=== PATIENT | female | born 2005 | race Two or more races ===

== ENCOUNTER 2024-10-23 22:27 | Emergency (ER) | payer MEDICAID, SELFPAY ==
[2024-10-23 22:28] VITALS: BMI 41.9
[2024-10-23 22:57] VITALS: BP 145/95; PULSE 105; RESP 20; TEMP 36.8; O2SAT 97
[2024-10-23] MEDS: NAPROXEN 250 MG TABLET 500 MG PO (23:12)
[2024-10-23] MEDS: METOCLOPRAMIDE 5 MG TABLET 10 MG PO (23:13)
[2024-10-24 00:12] VITALS: RESP 18
--- NOTE | 2024-10-24 04:50 | PD.EDHA ---
ED Headache RME/HPI General Chief Complaint: Headache Stated Complaint: HEADACHE Time Seen by Provider: 10/23/24 23:02 Arrival date/time: 10/23/24 22:27 18F with no significant PMH presents to ED with several months of intermittent HAs. When she gets these HAs she states her scalp rapp. Patient also states she's been losing her hair from the sides upwards (patient has photos; she cannot show due to wearing a hijab). Limitations: no limitations Related Data Previous Rx's ?Medication ?Instructions ?Recorded acetaminophen 300 mg-codeine 30 mg 1 tab PO Q8H PRN pain #14 tabs 09/19/22 tablet acetaminophen 500 mg tablet 500 mg PO Q6H PRN fever or pain 09/19/22 #30 tabs ibuprofen 800 mg tablet 800 mg PO Q8H PRN pain #30 tabs 09/19/22 Allergies Allergy/AdvReac Type Severity Reaction Status Date / Time No Known Allergies Allergy Verified 10/23/24 22:28 Review of Systems Review of Systems Systems Reviewed: All systems reviewed, normal except as documented Constitutional Constitutional: Reports system reviewed and no additional complaints, except as documented, Reports as per HPI, Denies fever(s) and Reports headache(s) ENT Ears, Nose, Mouth, and Throat: Denies disequilibrium and Reports headache(s) Cardiovascular Cardiovascular: Reports system reviewed and no additional complaints, except as documented, Denies chest pain and Denies dyspnea Respiratory Respiratory: Reports system reviewed and no additional complaints, except as documented, Denies cough and Denies dyspnea Gastrointestinal Gastrointestinal: Reports system reviewed and no additional complaints, except as documented, Denies abdominal pain, Denies nausea and Denies vomiting Integumentary/Breasts Skin/Breast: Reports as per HPI and Reports alopecia Neurologic Neurologic: Reports system reviewed and no additional complaints, except as documented, Denies confusion, Denies disequilibrium and Reports headache(s) Psychiatric Psychiatric: Denies confusion Past Medical History Past Medical History NEUROLOGIC: Negative Neurological Disorders or Seizures CARDIAC: Negative Cardiac Disorders or Congestive Heart Failure RESPIRATORY: Negative Chronic Obstructive Pulmonary Disease (COPD) GASTROINTESTINAL: Negative Gastrointestinal Disorders GENITOURINARY: Negative Genitourinary Disorders or Renal Disease REPRODUCTIVE: Negative Pelvic Inflammatory Disease MUSCULOSKELETAL: Negative Musculoskeletal Disorders ENT: Negative Cataracts ENDOCRINE: Negative Endocrine Disorders, Diabetes Mellitus Type 1 or Diabetes Mellitus Type 2 HEMATOLOGIC: Negative Blood Disorders OTHER HISTORY: Negative Autoimmune Disease, Blood Transfusions, Anesthesia Reactions, MRSA, Clostridium Difficile or Cancer Family History FAMILY HISTORY: Negative Family Psychiatric Problems, Family Respiratory Disorders, Family Cardiac Disorders, Family Gastrointestinal Problems, Family Cancer, Family Surgery or Family Anesthesia Reaction Surgical History SURGICAL: Positive Tonsillectomy; Negative Cardiac Surgery, Endocrine Surgery, Abdominal Surgery, Nephrectomy, Joint Replacement or Mastectomy Social History SMOKING STATUS: Never smoker ED Exam General Limitations: Present no limitations General appearance: Present alert and in no apparent distress Head Head exam: Present atraumatic and other (wearing hijab) Eye Eye exam: Present normal appearance, PERRL and EOMI ENT ENT exam: Present normal exam, normal oropharynx and mucous membranes moist Neck Neck exam: Present normal inspection, full ROM and trachea midline Chest Chest inspection: Present normal inspection and symmetric chest wall rise Respiratory Respiratory exam: Present normal lung sounds bilaterally Cardiovascular Cardiovascular exam: Present regular rate, normal rhythm and normal heart sounds Abdominal Exam Abdominal exam: Present soft and normal bowel sounds Extremities Exam Extremities exam: Present normal inspection and full ROM Back Exam Back exam: Present normal inspection and full ROM Neurological Exam Neurological exam: Present alert, oriented X3 and CN II-XII intact Psychiatric Psychiatric exam: Present normal affect and normal mood Skin Skin exam: Present warm, dry, intact and normal color Course Quality Measures none Orders Category Date Time Status Metoclopramide [Reglan] Med 10/23/24 23:03 Discontinued 10 mg PO X1 ONE Naproxen [Naprosyn] Med 10/23/24 23:03 Discontinued 500 mg PO X1 ONE Vital Signs Vital signs: Vital Signs Temperature 98.2 F 10/23/24 22:57 Pulse Rate 105 H 10/23/24 22:57 Respiratory Rate 20 10/23/24 22:57 Blood Pressure 145/95 H 10/23/24 22:57 Pulse Oximetry (%) 97 10/23/24 22:57 Oxygen Delivery Method Room Air 10/23/24 22:57 O2 at 97% on RA and WNLs Headache MDM Narrative MDM Narrative:: 18F with no significant PMH presents to ED with several months of intermittent HAs. When she gets these HAs she states her scalp rapp. Patient also states she's been losing her hair from the sides upwards (patient has photos; she cannot show due to wearing a hijab). Physical exam reveals normal pupil response and EOM. No sinus tenderness. Patient is afebrile, calm, and alert. Meds improved current TURK. Personnel Worker given to see esthetician/skin therapist to work-up alopecia. Patient data External records reviewed:: [facility] previous records Clinical information provided by:: patient Social determinants that could affect healthcare access:: none Patient has the following chronic illnesses:: none How is presenting disease/condition affected by chronic disease/condition?: no chronic disease Evaluation data The following diagnostics were reviewed and interpreted by me:: other (specify) (none) Lab and/or radiology exams considered but not ordered:: not ordered Interpretation Summary: n/a Medications / Prescriptions Medications or Prescriptions considered but not ordered:: ordered Medication administrations:: Medication Administration History Discontinued Medications Metoclopramide HCl (Metoclopramide 5 Mg Tablet) 10 mg PO X1 ONE Stop: 10/23/24 23:04 Last Admin: 10/23/24 23:13 Dose: 10 mg Documented By: Naproxen (Naproxen 250 Mg Tablet) 500 mg PO X1 ONE Stop: 10/23/24 23:04 Last Admin: 10/23/24 23:12 Dose: 500 mg Documented By: above Consultations Consultation(s) initiated? (list below): No Diagnosis Differential diagnosis headache: migraine, tension headache, subarachnoid hemorrhage, headache, meningitis, sinusitis, postconcussion syndrome and other (alopecia) Most likely diagnosis given after review of the tests above:: alopecia and TURK Admission Indicated Admission indicated?: not indicated Admission Request Was there a request for admission?: No Disposition Plan Disposition Plan: Discharge Discharge Attestation Discharge Attestation: The patient and all family members were given an opportunity to ask questions and understood the discharge instructions. Discharge instructions specifically effects, indications for sooner follow up or return to the emergency department, and the expected course of current diagnosis. Patient condition: Stable Discharge Plan Plan Patient Disposition: HOME (Self Care) Disposition Comment: Stable Prescriptions/Referrals Prescriptions/Med Rec: No Action ibuprofen 800 mg tablet 800 mg PO Q8H PRN (Reason: pain) Qty: 30 0RF acetaminophen 500 mg tablet 500 mg PO Q6H PRN (Reason: fever or pain) Qty: 30 0RF acetaminophen-codeine 300-30 mg tablet 1 tab PO Q8H PRN (Reason: pain) Qty: 14 0RF Referrals: Mark Brooks MD [Primary Care Provider] - In 1 week Problem List Clinical Impression: Headache, Alopecia Patient/Caregiver Discharge Instructions Education Materials: Self-Care for Headaches Additional Instructions: Please follow-up with PCP within 24-48 hours and return immediately if symptoms worsen. See esthetician/skin therapist to work-up alopecia. Print Language: Micronesian Stand Alone Forms: Patient Portal Info Letter PA/SECURITY SERVICES MANAGER Supervising Physician PA/SECURITY SERVICES MANAGER Supervising Physician: Dr. Rojas
== END 2024-10-24 00:12 | disposition home or self-care (01) ==
PROVIDERS: Emergency Provider Emergency Medicine; PCP Family Medicine
DX: L65.9 Nonscarring hair loss, unspecified (principal); R51.9 Headache, unspecified
CPT/HCPCS: 99282; A9270